=== PATIENT | male | born 1990 | race Caucasian/White ===

== ENCOUNTER 2018-02-26 16:16 | Emergency (ER) | payer SELFPAY ==
[2018-02-26 16:17] VITALS: BP 140/79; PULSE 71; RESP 16; TEMP 36.9; O2SAT 98; BMI 32.5
[2018-02-26 16:28] VITALS: O2SAT 98
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
[2018-02-26] MEDS: Naproxen 500 MG Tablet PO (17:16)
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
== END 2018-02-26 17:56 | disposition home or self-care (01) ==
PROVIDERS: Emergency Provider Emergency Medicine
DX: S16.1XXA Strain of muscle, fascia and tendon at neck level, initial encounter (principal); S09.90XA Unspecified injury of head, initial encounter; V53.5XXA Driver of pick-up truck or van injured in collision with car, pick-up truck or van in traffic accident, initial encounter; Y93.89 Activity, other specified; Y92.410 Unspecified street and highway as the place of occurrence of the external cause; Z72.0 Tobacco use
CPT/HCPCS: 70450; 72040; 72100; 99283